=== PATIENT | male | born 1955 | race Caucasian/White ===

== ENCOUNTER 2022-09-05 16:50 | Observation (INO) | payer MEDICARE, BC ==
[~2022-09-05] VITALS: Ht 172.7 cm; Wt 101.7 kg
[~2022-09-05 16:50] MED LIST: ADVIL200 MG PO; COLCHICINE0.6 M1 PO; IBUPROFEN600 MG PO; OXYCODON-ACETA1 EAC2 PO; PROBENECID500 MG PO; PROVIGIL200 MG PO; TYLENOL EXTRA500 MG PO
--- OUTSIDE RECORDS SUMMARY | 2022-09-05 16:59 | XMS ---
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 Edgar has no Care Guidelines for this patient. Bhavik V[facility] (12 MO.) [facility] TOTAL 2 NOTE: Visits indicate total known visits. ED/C VISIT TRACKING (12 MO.) [facility] COMPLAINT: - STROKE SYMPTOMS 08/10/2022 16:05 [facility] - [place] TYPE: Emergency COMPLAINT: - EMS ST elevation DIAGNOSES: - Allergy status to narcotic agent - Contact with and (suspected) exposure to COVID-19 - Dehydration - Dyspnea, unspecified - Essential (primary) hypertension - Hyperlipidemia, unspecified - Hypertensive emergency - Other care home (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 - Syncope and collapse - Unspecified asthma, uncomplicated INPATIENT VISIT TRACKING (12 MO.) 08[facility]10[facility]2022 22:03 [facility] DIAGNOSES: - Acute ischemic heart disease, unspecified - Essential (primary) hypertension - Morbid (severe) obesity due to excess calories - Orthostatic hypotension - Other specified congenital malformations of heart - Syncope and collapse [email or web address]
[2022-09-05] MEDS ORDERED: METOPROLOL SUCC25 MG PO (17:25)
[2022-09-05] MEDS ORDERED: AMLODIPINE BESYL5 MG PO (17:25)
[2022-09-05] MEDS ORDERED: VENTOLIN HFA18 GM (17:26)
[2022-09-05] MEDS ORDERED: ADULT ASPIRIN R81 MG PO (17:27)
[2022-09-05] MEDS ORDERED: B-100 COMPLEX100 MG PO (17:27)
--- NOTE | 2022-09-05 20:25 | EKG ---
[facility] [address] [place] [address] Signed Normal sinus rhythm Nonspecific T wave abnormality Abnormal ECG When compared with ECG of 24-MAY-2019 12:57, No significant change was found Confirmed by Yaya Lagos MD () on 09/05/2022 8:25:10 PM Electronically Signed By: YAYA LAGOS MD 09/05/222024 PATIENT NAME: LEANDRO RODRIGEZ Electrocardiogram DATE OF : 53 PHYSICIAN: YAYA LAGOS MD REPORT #: [id number] REPORT IS CONFIDENTIAL AND NOT TO BE RELEASED WITHOUT AUTHORIZATION
[2022-09-05 20:30] VITALS: BP 148/67
[2022-09-06 01:01] VITALS: BP 142/72
[2022-09-06 04:58] VITALS: BP 165/89
[2022-09-06 09:29] VITALS: BP 171/83
[2022-09-06] MEDS ORDERED: VITAMIN D325 MCG PO (11:29)
[2022-09-06] MEDS ORDERED: LIPITOR80 MG GT (12:44)
[2022-09-06 15:07] VITALS: BP 160/83
== END 2022-09-06 15:25 | disposition home or self-care (01) ==
LOC: ED 16:50 → MS 16:52
PROVIDERS: ADMIT Family Medicine; ATTEND Family Medicine
DX: I63.81 Other cerebral infarction due to occlusion or stenosis of small artery (principal); Z20.822 Contact with and (suspected) exposure to COVID-19; I10 Essential (primary) hypertension; R47.1 Dysarthria and anarthria; R29.810 Facial weakness; M10.9 Gout, unspecified; R01.1 Cardiac murmur, unspecified; D72.829 Elevated white blood cell count, unspecified; R29.700 NIHSS score 0; N17.9 Acute kidney failure, unspecified; Z66 Do not resuscitate; Z91.81 History of falling; Z88.5 Allergy status to narcotic agent; Z79.899 Other long term (current) drug therapy; Z79.82 Long term (current) use of aspirin
CPT/HCPCS: 36415; 70450; 70496; 70498; 70551; 71045; 80053; 80061; 81003; 83036; 83735; 84100; 85025; 85610; 85730; 87502; 93005; 93010; 93306; 97165; 99285-25; C9803; G0378; J7030; Q3014; Q9967; U0003

== ENCOUNTER 2024-09-14 09:18 | Emergency (ER) | payer MEDICARE, BC ==
[~2024-09-14] VITALS: Ht 172.7 cm; Wt 95.2 kg
[~2024-09-14 09:18] MED LIST changes: +ADULT ASPIRIN R81 MG PO; +AMLODIPINE BESYL5 MG PO; +B-100 COMPLEX100 MG PO; +LIPITOR80 MG GT; +METOPROLOL SUCC25 MG PO; +VENTOLIN HFA18 GM; +VITAMIN D325 MCG PO
[2024-09-14] MEDS ORDERED: KETOROLAC TROMETHAMINE 15 MG/ML VIAL IV ONE (12:15)
[2024-09-14] MEDS ORDERED: ondansetron HCL 4 MG/2 ML VIAL IV PRN (12:15)
[2024-09-14 12:50] LABS: BASOPHILS 1.2 % (0-2); EOSINOPHILS 0.7 % (0-6); HEMATOCRIT 52.2 % (35.0-50.0); HEMOGLOBIN 18.1 g/dL (12.0-18.0); LYMPHOCYTES 4.2 % (24-44); MCH 32.1 (27-36); MCHC 34.8 g/dl (30-36); MCV 92.3 fl (81-99); MONOCYTES 3.8 % (0-12); NEUTROPHILS 90.1 % (39-80); PLATELET COUNT 395 K/uL (140-440); RBC 5.66 M/ul (4.3-5.7); RDW 18.3 (10.5-15.0)
[2024-09-14 13:09] LABS: ALBUMIN/GLOBULIN RATIO 1.29 (1.1-2.4); ANION GAP 14.1 (7-21); BILIRUBIN, TOTAL 0.8 mg/dL (0.2-1.0); BUN/CREATININE RATIO 11.53 (6.0-28.6); CALCIUM 8.9 mg/dL (8.5-10.1); CREATININE, SERUM 1.82 mg/dL (0.70-1.30); POTASSIUM 4.1 mmol/L (3.5-5.1); PROTEIN, TOTAL 7.1 g/dL (6.4-8.2)
[2024-09-14] MEDS ORDERED: HYDROmorphone HCL 1 MG/ML SYR IV ONE (13:30)
[2024-09-14] MEDS ORDERED: SODIUM CHLORIDE 0.9% 1,000 ML IV ONE (15:00)
[2024-09-14 15:10] LABS: BILIRUBIN, URINE POSITIVE (negative); BLOOD/HGB, URINE LARGE (Negative); KETONE, URINE SMALL (Negative); LEUK ESTERASE, URINE NEGATIVE (negative); NITRITE, URINE NEGATIVE (negative); PH, URINE 5.5 (5-7)
[2024-09-14 15:20] LABS: CRYSTALS, URINE NONE SEEN (0-1+); EPITHELIAL CELLS, URINE SQUAMOUS 1+ /lpf (0-1+); RED BLOOD CELLS, URINE >50 /hpf (0-5)
[2024-09-14 15:21] LABS: BACTERIA, URINE RARE /hpf (negative); CASTS, URINE HYALINE 1+ \\lpf; COLLECTION TYPE, URINE CLEAN CATCH; REFLEX CULTURE, URINE No (No)
[2024-09-14] MEDS ORDERED: ONDANSETRON HCL4 MG PO (16:54)
[2024-09-14] MEDS ORDERED: IBU600 MG PO (16:54)
[2024-09-14] MEDS ORDERED: FLOMAX0.4 MG PO (16:54)
[2024-09-14] MEDS ORDERED: HYDROCODON-ACE1 EAC8 PO (16:54)
[2024-09-14 17:00] VITALS: BP 170/86
== END 2024-09-14 17:00 | disposition home or self-care (01) ==
LOC: ED 09:18
PROVIDERS: Emergency Medicine
DX: N13.2 Hydronephrosis with renal and ureteral calculous obstruction (principal); I10 Essential (primary) hypertension; Z79.82 Long term (current) use of aspirin; Z79.899 Other long term (current) drug therapy; Z88.5 Allergy status to narcotic agent
CPT/HCPCS: 36415; 51702; 51798; 74177; 80053; 81001; 85025; 99284-25; A6590; J1171; J1885; J2405; J7030; Q9967

== ENCOUNTER 2024-10-31 08:45 | Emergency (ER) | payer MEDICARE, BC ==
[~2024-10-31 08:45] MED LIST changes: +FLOMAX0.4 MG PO; +HYDROCODON-ACE1 EAC8 PO; +IBU600 MG PO; +ONDANSETRON HCL4 MG PO
[2024-10-31] MEDS ORDERED: HYDROCODON-ACE1 EA10 PO (10:17)
[2024-10-31 10:25] VITALS: BP 146/63
== END 2024-10-31 10:25 | disposition home or self-care (01) ==
LOC: ED 08:45
DX: M23.91 Unspecified internal derangement of right knee (principal); G89.29 Other chronic pain; I10 Essential (primary) hypertension; I48.91 Unspecified atrial fibrillation; Z88.5 Allergy status to narcotic agent; Z79.899 Other long term (current) drug therapy; Z79.82 Long term (current) use of aspirin
CPT/HCPCS: 73560; 99283

== ENCOUNTER 2024-11-10 18:36 | Emergency (ER) | payer MEDICARE, BC ==
[~2024-11-10] VITALS: Ht 172.7 cm; Wt 86.0 kg
[~2024-11-10 18:36] MED LIST changes: +HYDROCODON-ACE1 EA10 PO
--- OUTSIDE RECORDS SUMMARY | 2024-11-10 18:43 | XMS ---
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 - 2 Visits in 30 Days CARE PROVIDERS There are no care providers on record at this time. Edgar has no Care Guidelines for this patient. Bhavik VISIT COUNT (12 MO.) 3 [facility] T[facility] 3 NOTE: Visits indicate total known visits. ED/C VISIT TRACKING (12 MO.) 11/10/2024 18:37 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 - Other chronic pain - Other terminal gauger (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 - Pain in right knee - Unspecified atrial fibrillation - Unspecified internal derangement of right knee 09/14/2024 09:18 [facility] [place] TYPE: Emergency COMPLAINT: - FLANK PAIN DIAGNOSES: - Allergy status to narcotic agent - Essential (primary) hypertension - Hydronephrosis with renal and ureteral calculous obstruction - residential (current) use of aspirin - Other terminal gauger (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 - Unspecified abdominal pain INPATIENT VISIT TRACKING (12 MO.) No inpatient visits to display in this time frame [email or web address]
[2024-11-10] MEDS ORDERED: DONEPEZIL HCL10 MG PO (18:55)
[2024-11-10] MEDS ORDERED: HYDROXYUREA500 MG PO (18:55)
[2024-11-10] MEDS ORDERED: TRAZODONE HCL50 MG (18:56)
[2024-11-10] MEDS ORDERED: MODAFINIL200 MG PO (18:56)
[2024-11-10 20:43] LABS: BASOPHILS 1.1 % (0.2-1.2); EOSINOPHILS 1.0 % (0.8-7.0); LYMPHOCYTES 4.8 % (21.8-53.1); MCH 33.8 PG (25.7-32.2); MCHC 32.9 g/dL (32.3-36.5); MCV 102.8 fL (79.0-92.2); MONOCYTES 5.0 % (5.3-12.2); NEUTROPHILS 87.5 % (34.0-67.9); RBC 4.67 M/uL (4.63-6.08)
[2024-11-10 20:53] LABS: SMEAR REVIEW BLOOD SEE COMMENTS
[2024-11-10 20:59] LABS: ALT (SGPT) 23.0 U/L (14-59); AST (SGOT) 16.0 U/L (15-37); GLOMERULAR FILTRATION RATE,EST 76.0 mL/min (>60); PROTEIN, TOTAL 6.2 g/dL (6.4-8.2); UREA NITROGEN 26.0 mg/dL (7-18)
[2024-11-10] MEDS ORDERED: PREDNISONE20 MG PO (21:39)
[2024-11-10] MEDS ORDERED: predniSONE 20 MG TAB PO ONE (21:45)
[2024-11-10 22:02] VITALS: BP 131/60
== END 2024-11-10 22:05 | disposition home or self-care (01) ==
LOC: ED 18:36
PROVIDERS: Internal Medicine
DX: M10.9 Gout, unspecified (principal); I10 Essential (primary) hypertension; Z79.899 Other long term (current) drug therapy; Z79.82 Long term (current) use of aspirin; Z88.5 Allergy status to narcotic agent
CPT/HCPCS: 36415; 73110; 80053; 84550; 85025; 85060; 86140; 99283; J7512

== ENCOUNTER 2024-11-22 07:05 | Emergency (ER) | payer MEDICARE, BC ==
[~2024-11-22] VITALS: Ht 172.7 cm; Wt 82.0 kg
[~2024-11-22 07:05] MED LIST changes: +AMLODIPINE BESY10 MG PO; -AMLODIPINE BESYL5 MG PO; +DONEPEZIL HCL10 MG PO; +HYDROXYUREA500 MG PO; +MODAFINIL200 MG PO; +PREDNISONE20 MG PO; +TRAZODONE HCL50 MG
--- OUTSIDE RECORDS SUMMARY | 2024-11-22 07:12 | XMS ---
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 Edgar has no Care Guidelines for this patient. Bhavik [facility]12 MO.) [facility] NOTE: Visits indicate total known visits. ED/C VISIT TRACKING (12 MO.) 11/22/2024 07:06 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 - Pain in right wrist 10/31/2024 08:45 [facility] [place] TYPE: Emergency COMPLAINT: - R KNEE PAIN DIAGNOSES: - Allergy status to narcotic agent - Essential (primary) hypertension - alf (current) use of aspirin - Other chronic pain - Other assisted (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 - Pain in right knee - Unspecified atrial fibrillation - Unspecified internal derangement of right knee 09/14/2024 09:18 [facility] [place] TYPE: Emergency COMPLAINT: - FLANK PAIN DIAGNOSES: - Allergy status to narcotic agent - Essential (primary) hypertension - Hydronephrosis with renal and ureteral calculous obstruction - alf (current) use of aspirin - Other assisted (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 - Unspecified abdominal pain INPATIENT VISIT TRACKING (12 MO.) No inpatient visits to display in this time frame [email or web address]
[2024-11-22] MEDS ORDERED: HYDROmorphone HCL 1 MG/ML SYR IV PRN (07:30)
[2024-11-22 07:39] LABS: BASOPHILS 1.1 % (0.2-1.2); EOSINOPHILS 1.2 % (0.8-7.0); LYMPHOCYTES 9.2 % (21.8-53.1); MCH 33.9 PG (25.7-32.2); MCHC 33.4 g/dL (32.3-36.5); MCV 101.4 fL (79.0-92.2); MONOCYTES 7.8 % (5.3-12.2); NEUTROPHILS 79.4 % (34.0-67.9); RBC 4.96 M/uL (4.63-6.08)
[2024-11-22] MEDS ORDERED: SODIUM CHLORIDE 0.9% 1,000 ML IV PRN (07:45)
[2024-11-22] MEDS ORDERED: IBUPROFEN 600 MG TAB PO ONE (07:45)
[2024-11-22 07:59] LABS: ALT (SGPT) 35.0 U/L (14-59); AST (SGOT) 23.0 U/L (15-37); GLOMERULAR FILTRATION RATE,EST 66.0 mL/min (>60); PROTEIN, TOTAL 6.4 g/dL (6.4-8.2); UREA NITROGEN 18.0 mg/dL (7-18)
[2024-11-22] MEDS ORDERED: AMOX TR-K CLV1 EAC1 PO (10:27)
[2024-11-22 10:43] VITALS: BP 135/64
== END 2024-11-22 10:43 | disposition home or self-care (01) ==
LOC: ED 07:05
PROVIDERS: Emergency Medicine
DX: K57.32 Diverticulitis of large intestine without perforation or abscess without bleeding (principal); I10 Essential (primary) hypertension; Z79.82 Long term (current) use of aspirin; Z79.899 Other long term (current) drug therapy; Z88.5 Allergy status to narcotic agent
CPT/HCPCS: 36415; 74177; 80053; 85025; 85060; 96361; 96374; 96375; 99284-25; A9270; J1171; J2405; J7030; Q9967

== ENCOUNTER 2024-12-04 15:12 | Inpatient (IN) | payer MEDICARE, BC ==
[~2024-12-04] VITALS: Ht 172.7 cm; Wt 84.6 kg
[~2024-12-04 15:12] MED LIST changes: +AMOX TR-K CLV1 EAC1 PO
--- OUTSIDE RECORDS SUMMARY | 2024-12-04 15:17 | XMS ---
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 Edgar has no Care Guidelines for this patient. Bhavik [facility] MO[facility] NOTE: Visits indicate total known visits. ED/C VISIT TRACKING (12 MO.) 12[facility]/2024 15[facility] [place] [facility] COMPLAINT: - ABDOMINAL PAIN 11/22/2024 07:06 [facility] [place] TYPE: Emergency COMPLAINT: - ABDOMINAL PAIN DIAGNOSES: - Allergy status to narcotic agent - Diarrhea, unspecified - Diverticulitis of large intestine without perforation or abscess without bleeding - Essential (primary) hypertension - prison (current) use of aspirin - Other alf (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 11/10/2024 18:37 [facility] [place] TYPE: Emergency COMPLAINT: - RT HAND SWELLING DIAGNOSES: - Allergy status to narcotic agent - Essential (primary) hypertension - Gout, unspecified - prison (current) use of aspirin - Other 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 (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 - Pain in right wrist 10/31/2024 08:45 [facility] [place] TYPE: Emergency COMPLAINT: - R KNEE PAIN DIAGNOSES: - Allergy status to narcotic agent - Essential (primary) hypertension - prison (current) use of aspirin - Other chronic pain - Other alf (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 - Pain in right knee - Unspecified atrial fibrillation - Unspecified internal derangement of right knee 09/14/2024 09:18 [facility] [place] TYPE: Emergency COMPLAINT: - FLANK PAIN DIAGNOSES: - Allergy status to narcotic agent - Essential (primary) hypertension - Hydronephrosis with renal and ureteral calculous obstruction - emt intermediate (current) use of aspirin - Other 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 (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 - Unspecified abdominal pain INPATIENT VISIT TRACKING (12 MO.) No inpatient visits to display in this time frame [email or web address]
[2024-12-04 15:24] LABS: BASOPHILS 0.9 % (0.2-1.2); EOSINOPHILS 1.8 % (0.8-7.0); LYMPHOCYTES 5.1 % (21.8-53.1); MCH 34.6 PG (25.7-32.2); MCHC 33.6 g/dL (32.3-36.5); MCV 102.7 fL (79.0-92.2); MONOCYTES 4.4 % (5.3-12.2); NEUTROPHILS 87.2 % (34.0-67.9); RBC 4.37 M/uL (4.63-6.08)
[2024-12-04] MEDS ORDERED: SODIUM CHLORIDE 0.9% 1,000 ML IV ONE (15:30)
[2024-12-04 15:40] LABS: ALT (SGPT) 22.0 U/L (14-59); AST (SGOT) 14.0 U/L (15-37); GLOMERULAR FILTRATION RATE,EST 81.0 mL/min (>60); PROTEIN, TOTAL 6.0 g/dL (6.4-8.2); UREA NITROGEN 11.0 mg/dL (7-18)
[2024-12-04 16:28] LABS: BLOOD/HGB, URINE NEGATIVE (Negative); KETONE, URINE NEGATIVE (Negative); LEUK ESTERASE, URINE NEGATIVE (negative); NITRITE, URINE NEGATIVE (negative)
[2024-12-04] MEDS ORDERED: CIPROFLOXACIN/DEXTROSE 400 MG/200 ML PIGGYBACK IV ONE (16:45)
--- NOTE | 2024-12-04 17:50 | NUR ---
REPORT RECIEVED FROM MADALYN JAIN. PATIENT TRANSFERRED FROM STRETCHER TO BED BY SLIDING OVER. THIS RN IN ROOM FOR ADMISSION.
[2024-12-04 17:53] VITALS: BP 144/61
[2024-12-04] MEDS ORDERED: LACTATED RINGER'S 1,000 ML IV SCH (18:00)
[2024-12-04] MEDS ORDERED: MORPHINE SULFATE 4 MG/ML VIAL IV PRN (18:00)
--- NOTE | 2024-12-04 19:31 | NUR ---
PER PATIENT REQUEST, PATIENT'S FRIEND (JUAN A) WAS CALLED AND GIVEN AND UPDATE.
--- NOTE | 2024-12-04 19:33 | NUR ---
REPORT RECEIVED FROM MADALYN GRIGSBY. PATIENT IS RESTING IN BED COMFORTABLY, RESPIRATIONS ARE EVEN AND UNLABORED AND HE APPEARS IN NAD. IV FLUIDS AND MEDICATION ARE INFUSING WITHOUT DIFFICULTY. HE DENIES ANY NEEDS AT THIS TIME. CALL LIGHT IN REACH.
--- NOTE | 2024-12-04 19:50 | NUR ---
Provided urinal for Pt's use-Call light left in reach. No other needs expressed by Pt.
[2024-12-04 20:49] VITALS: BP 121/57
--- NOTE | 2024-12-04 20:50 | NUR ---
SHIFT ASSESSMENT COMPLETED, PATIENT REPORTS 2/10 TOLERABLE ABD PAIN, HE STATES HAS IMPROVED SINCE EARLIER. BOWEL TONES ARE ACTIVE, HE IS TENDER TO PALPATION ON THE UPPER RIGHT AND LOWER RIGHT QUADRANTS. OTHERWISE DENIES DISCOMFORT. VS OBTAINED AND RECORDED, OUTPUT DOCUMENTED. IV FLUIDS INFUSING WITHOUT DIFFICULTY. HE DENIES ANY NEEDS AT THIS TIME, CALL LIGHT IN REACH, BED ALARM ON.
--- NOTE | 2024-12-04 23:37 | NUR ---
PATIENT RESTING WITH EYES CLOSED, RESPIRATIONS EVEN AND UNLABORED. NO NEEDS IDENTIFIED, IVF CONTINUING TO INFUSE WITHOUT DIFFICULTY, CALL LIGHT IN REACH
[2024-12-05] VITALS (7 sets, daily range): BP systolic 97–140; BP diastolic 58–67
--- NOTE | 2024-12-05 03:14 | NUR ---
NEW IVF BAG HUNG PER ORDER. INFUSING WITHOUT DIFFICULTY. PATIENT RESTING WITH EYES CLOSED, RESPIRATIONS ARE EVEN AND UNLABORED. NO NEEDS IDENTIFIED, CALL LIGHT IN REACH, BED ALARM ON.
[2024-12-05 05:07] LABS: BASOPHILS 1.1 % (0.2-1.2); EOSINOPHILS 3.7 % (0.8-7.0); LYMPHOCYTES 9.8 % (21.8-53.1); MCH 34.6 PG (25.7-32.2); MCHC 33.2 g/dL (32.3-36.5); MCV 104.2 fL (79.0-92.2); MONOCYTES 5.2 % (5.3-12.2); NEUTROPHILS 79.6 % (34.0-67.9); RBC 4.08 M/uL (4.63-6.08)
[2024-12-05 05:17] LABS: GLOMERULAR FILTRATION RATE,EST 89.0 mL/min (>60); UREA NITROGEN 7.0 mg/dL (7-18)
--- NOTE | 2024-12-05 05:44 | NUR ---
PATIENT RESTING IN BED, RESPIRATIONS EVEN AND UNLABORED. REPORTS NO PAIN AT THIS TIME, STATES HE IS COMFORTABLE. ABD ASSESSMENT COMPLETE, ACTIVE BOWEL TONES. TTP LEFT LOWER QUADRANT. HE DENIES ANY NEEDS, CALL LIGHT IN REACH. IVF CONTINUING TO INFUSE PER ORDER WITHOUT DIFFICULTY.
--- NOTE | 2024-12-05 07:24 | NUR ---
PT RESTING EYES CLOSED AT TIME OF SHIFT REPORT, LEFT UNDISTURBED. CALL LIGHT AND NEEDED ITEMS AT BEDSIDE.
[2024-12-05] MEDS ORDERED: MAGNESIUM SULFATE 2 GM/50 ML BAG IV SCH (08:00)
[2024-12-05] MEDS ORDERED: ATORVASTATIN CA80 MG PO (08:00)
[2024-12-05] MEDS ORDERED: METOPROLOL SUCC50 MG PO (08:03)
[2024-12-05] MEDS ORDERED: POTASSIUM CHLORIDE 40 MEQ in DEXTROSE 5% 250 ML IV ONE (08:15)
--- NOTE | 2024-12-05 08:26 | NUR ---
pt alert and awake. WENT IN TO USE THE BATHROOM, URINATED AND HAD GAS, NO BOWEL MOVEMENT. PT SITTING UP IN BED, DID NOT WANT TO SIT IN THE CHAIR. TURNED ON LEG COMPRESSION DEVICES, THEY HAD BEEN TURNED OFF FROM LAST NIGHT. FRESH ICE WATER NEXT TO BED AND CALL LIGHT WITHIN REACH. PT REPORTED NEEDING NOTHING ELSE AT THIS TIME.
--- NOTE | 2024-12-05 08:37 | NUR ---
PT AWAKE NOW RESTING IN BED. REPLIES "NOT TOO BAD" WHEN ASKED H0W HIS ABDOMEN IS DOING. DENIES NEEDS AT THIS TIME AGREES HE SLEPT WELL. NEEDED ITEMS IN REACH BED ALARM IS SET
[2024-12-05] MEDS ORDERED: CIPROFLOXACIN/DEXTROSE 400 MG/200 ML PIGGYBACK IV SCH (09:00)
[2024-12-05] MEDS ORDERED: ENOXAPARIN SODIUM 40 MG/0.4 ML SYR SUB-Q SCH (09:00)
--- NOTE | 2024-12-05 09:22 | NUR ---
PT RESTING EYES CLOSED. CALL LIGHT IN REACH
--- NOTE | 2024-12-05 09:49 | NUR ---
DR PRADO IN TO SEE PT DISCUSSES PLAN GOING FORWARD ALL QUESTIONS ANSWERED.
--- NOTE | 2024-12-05 10:13 | NUR ---
PT SITTING UP IN BED, AN AM SNACK WAS JUST BROUGHT IN - HE WAS NPO EARLIER THIS MORNING. PT REQUESTED NOTHING MORE AT THIS TIME, CALL LIGHT WITHIN REACH.
--- NOTE | 2024-12-05 10:26 | NUR ---
PT UP AMBULATING WITH P/T. CHICKEN SOUP WELL TOLERATED.
[2024-12-05] MEDS ORDERED: METOPROLOL SUCCINATE 50 MG TABCR PO SCH (11:07)
--- NOTE | 2024-12-05 11:34 | NUR ---
P/T WELL TOLERATED PT AMBULATED THE [place] AND WAS COOPERATIVE WITH TASKS. RESTING IN BED EYES CLOSED AT THIS TIME. HAS HAD NO C/O ABDOMINAL PAIN THIS SHIFT
[2024-12-05] MEDS ORDERED: PHARMACY RENAL DOSE ADJUSTMENT 1 DOSE MISC PO SCH (12:00)
--- NOTE | 2024-12-05 12:14 | NUR ---
PT SITTING UP IN BED WATCHING TV EATING NOON MEAL. AGREES IT IS SETTLING WELL DENIES DISCOMFORTS OR NEEDS OF
--- NOTE | 2024-12-05 13:02 | NUR ---
PT TOLERATES LOW FIBER MEAL WITHOUT DISCOMFORT. SITTING UP WATCHING TV AT THIS TIME DENIES NEEDS OF
[2024-12-05] MEDS ORDERED: CIPROFLOXACIN500 MG PO (13:09)
[2024-12-05] MEDS ORDERED: METRONIDAZOLE500 MG PO (13:10)
--- NOTE | 2024-12-05 13:11 | NUR ---
DR PRADO IN TO SEE PT BOTH AGREE PT IS READY TO DC HOME
[2024-12-05] MEDS ORDERED: POTASSIUM CHLORIDE 10 MEQ TABCR PO STA (13:19)
== END 2024-12-05 13:54 | disposition home or self-care (01) | DRG 392 ==
LOC: ED 15:12 → MS 17:22
PROVIDERS: Emergency Medicine; ADMIT Student in an Organized Health Care Education/Training Program; ATTEND Student in an Organized Health Care Education/Training Program
DX: K57.12 Diverticulitis of small intestine without perforation or abscess without bleeding (principal); I10 Essential (primary) hypertension; F03.90 Unspecified dementia, unspecified severity, without behavioral disturbance, psychotic disturbance, mood disturbance, and anxiety; E78.5 Hyperlipidemia, unspecified; M10.9 Gout, unspecified; I48.91 Unspecified atrial fibrillation; K40.90 Unilateral inguinal hernia, without obstruction or gangrene, not specified as recurrent; N28.9 Disorder of kidney and ureter, unspecified; N20.0 Calculus of kidney; Z86.73 Personal history of transient ischemic attack (TIA), and cerebral infarction without residual deficits; Z88.5 Allergy status to narcotic agent; Z79.82 Long term (current) use of aspirin; Z79.899 Other long term (current) drug therapy; Z98.890 Other specified postprocedural states; Z96.643 Presence of artificial hip joint, bilateral; Z96.652 Presence of left artificial knee joint; Z96.89 Presence of other specified functional implants
CPT/HCPCS: 36415; 74177; 80048; 80053; 81003; 83690; 83735; 85025; 85060; 97161; A9270; J0744; J1650; J2270; J3475; J3480; J7030; J7060; J7121; Q9967